=== PATIENT | female | born 1945 | race Caucasian/White ===

== ENCOUNTER 2020-09-10 09:41 | Inpatient (IN) | payer MEDICARE, SELFPAY ==
[~2020-09-10] VITALS: Ht 167.6 cm; Wt 138.6 kg
[2020-09-10] VITALS (42 sets, daily range): BP systolic 55–140; BP diastolic 38–114
--- NOTE | 2020-09-10 09:43 | NUR ---
BIBA TAKEN TO BED 10
[2020-09-10] MEDS ORDERED: LEVOFLOXACIN 500 MG/D5W PREMIX 100 ML IV ONE (09:45)
[2020-09-10] MEDS ORDERED: NACL 0.9% 1,000 ML IV ONE (09:45)
--- NOTE | 2020-09-10 10:00 | NUR ---
Spoke to patients Tarah victor. Call for updates-- [phone]
--- NOTE | 2020-09-10 10:05 | NUR ---
75 y/o female A&OX4 biba with CPAP O2 at 92% from home c/o sob/difficulty breathing since yesterday. Lungs are diminished at bilateral bases, retractions noted on arrival, labored breathing. PLaced pt on bipap on arrival, O2 at 94%. medhx: DM, HTN
--- NOTE | 2020-09-10 10:09 | NUR ---
RECEIVED PT FROM EMT ON THEIR PIPAP REPLACED WITH VISION BPAP WITH SETTINGS CHARTED PER DR HOU PT ANXIOUS BREATH SOUNDS PRESENR BILAT COARSE BIPAP PLUGGED INTO RED OUTLET AMBU BAG AT BEDSIDE WILL CONTINUE TO MONITOR PT ON VENT
--- NOTE | 2020-09-10 10:14 | NUR ---
CHASITY ross completed, walked to lab.
[2020-09-10 10:22] LABS: HEMATOCRIT 38.7 % (36-48); HEMOGLOBIN 12.1 g/dL (12.0-16.0); MEAN CORPUSCULAR HEMOGLOBIN 28 pg (27-31); MEAN CORPUSCULAR HGB CONC 31 g/dL (33-37); MEAN CORPUSCULAR VOLUME 88.8 fL (80-94); PLATELET COUNT (AUTO) 77 K/uL (140-450); RED BLOOD CELL COUNT(AUTO) 4.36 MIL/uL (4.20-5.40); RED CELL DISTRIBUTION WIDTH 16.2 % (11.6-13.7); WHITE BLOOD COUNT (AUTO) 22.4 K/uL (4.8-10.8)
[2020-09-10] MEDS ORDERED: LORazepam 2 MG/ML VIAL ONE (10:33)
[2020-09-10] MEDS ORDERED: KETOROLAC 30 MG/ML VIAL IVP ONE (10:35)
[2020-09-10] MEDS ORDERED: LORazepam 2 MG/ML VIAL IVP ONE ×2 (10:35)
[2020-09-10 10:36] LABS: ALBUMIN 2.9 g/dL (3.4-5.0); ANION GAP 25.6 (8-16); ASPARTATE AMINOTRANSFERASE 159 U/L (15-37); CARBON DIOXIDE 15.2 mmol/L (21-32); CHLORIDE 104 mmol/L (98-107); CREATININE 3.2 mg/dL (0.6-1.3); GLUCOSE 113 mg/dL (74-106); POTASSIUM 3.8 mmol/L (3.5-5.1); SODIUM SERUM 141 mmol/L (136-145); TOTAL BILIRUBIN 0.8 mg/dL (0.0-1.0); UREA NITROGEN, BLOOD 53 mg/dL (7-18)
--- NOTE | 2020-09-10 10:38 | NUR ---
Xray at bedside
[2020-09-10 10:42] LABS: LYMPHOCYTES % (MANUAL) 5 % (20-46); MONOCYTES % (MANUAL) 5 % (5-12)
[2020-09-10] MEDS ORDERED: PROPOFOL 1000 MG/100 ML PREMIX 100 ML IV ONE (11:40)
[2020-09-10] MEDS ORDERED: ETOMIDATE 20 MG/10 ML VIAL IVP ONE (11:40)
[2020-09-10] MEDS ORDERED: SUCCINYLCHOLINE CHLORIDE 200 MG/10 ML VIAL IVP ONE (11:40)
[2020-09-10] MEDS ORDERED: NACL 0.9% 2,000 ML IV SCH (11:40)
[2020-09-10] MEDS ORDERED: MORPHINE SULFATE 2 MG/ML SYR IVP PRN (11:55)
[2020-09-10] MEDS ORDERED: DOCUSATE SODIUM 100 MG GELCAP PO PRN (11:55)
[2020-09-10] MEDS ORDERED: ZOLPIDEM 5 MG TAB PO PRN (11:55)
[2020-09-10] MEDS ORDERED: ACETAMINOPHEN 325 MG TAB PO PRN (11:55)
[2020-09-10] MEDS ORDERED: ONDANSETRON 4 MG/2 ML VIAL IVP PRN (11:55)
[2020-09-10] MEDS ORDERED: NACL 0.9% 1,000 ML IV SCH (11:55)
[2020-09-10] MEDS ORDERED: HYDROcodone/APAP 5/325 MG 1 TAB TAB PO PRN (11:55)
[2020-09-10] MEDS ORDERED: LORazepam 2 MG/ML VIAL IM/IVP PRN (11:55)
--- NOTE | 2020-09-10 12:10 | NUR ---
Dr Prescott at bedside for intubation
--- NOTE | 2020-09-10 12:14 | NUR ---
Pt successfully intubated by Dr Prescott, RT at bed side, equal rise and fall of chest with bilateral lung sounds.
[2020-09-10] MEDS ORDERED: ALBUTEROL HFA MDI 90 MCG/ACTUATION 8 GM INH PRN (12:20)
[2020-09-10] MEDS ORDERED: HEPARIN PER PHARMACY MC PRN (12:20)
--- NOTE | 2020-09-10 12:24 | NUR ---
NG tube placed in right nare. Pt tolerated well
[2020-09-10] MEDS ORDERED: MIDAZOLAM MDV 50 MG in NACL 0.9% 40 ML IV PRN (12:45)
[2020-09-10] MEDS ORDERED: MIDAZOLAM MDV 100 MG in NACL 0.9% 80 ML IV SCH (12:55)
--- NOTE | 2020-09-10 12:56 | NUR ---
Pt BP decreased, Dr Anderson made aware. Will begin Versed demarcus
[2020-09-10] MEDS ORDERED: AZITHROMYCIN 250 MG TAB PO SCH (13:00)
--- NOTE | 2020-09-10 13:00 | NUR ---
Dr Prescott made aware of urgent need for central line. No further orders placed.
--- NOTE | 2020-09-10 13:01 | NUR ---
ABG ATTEMPTED X2 UNABLE TO OBTAIN DUE TO LOW B/P . WILL TRY AT LATER TIME.
[2020-09-10] MEDS ORDERED: NOREPINEPHRINE 4 MG/4 ML VIAL IV ONE ×2 (13:23→16:48)
--- NOTE | 2020-09-10 13:30 | NUR ---
Levophed started for decrease in BP
--- NOTE | 2020-09-10 13:32 | NUR ---
Lab at bedside for blood draw
[2020-09-10] MEDS: NOREPINEPHRINE 4 MG in DEXTROSE 5% 250 ML IV PRN ×2 (13:38→18:03)
--- NOTE | 2020-09-10 14:15 | NUR ---
Patient will be admitted to care of Dr Rodriguez. Admited to ICU. Will go to room 3. Belongings list completed. Report to SHRAVAN Calixto.
--- NOTE | 2020-09-10 14:18 | NUR ---
Propofol waste given to pharmacist.
--- NOTE | 2020-09-10 14:30 | NUR ---
PT ARRIVED FROM ER IN [facility], REPORT RECEIVED, PT INTUBATED, TO VENT, SEDATED ON VERSED DRIP, LEVOPHED AT 10, PT PLACED ON CARDIAC MONTIOR, VITALS DOCUMENTED, PT WITH PIV 20 G TO RIGHT HAND, SITE WNL, CABRAL CATH IN PLACE, MINIMAL URINE IN TUBING, SKIN WARM COLOR WNL, REDNESS NOTED TO SKIN FOLDS WITH FOUL SMELL, SEE PHOTOS. PT ORIENTED TO ROOM AND FLOOR, POC REVIEWED, WILL CONTINUE TO MOTNIOR
[2020-09-10 15:09] LABS: ALBUMIN 2.9 g/dL (3.4-5.0); AMYLASE 36 U/L (25-115); ASPARTATE AMINOTRANSFERASE 162 U/L (15-37); CARBON DIOXIDE 12.9 mmol/L (21-32); CHLORIDE 103 mmol/L (98-107); CHOL/HDL RATIO 2.4 (1-4.5); CREATININE 3.3 mg/dL (0.6-1.3); FREE T4 (FREE THYROXINE) 1.21 ng/dL (0.76-1.46); GLUCOSE 107 mg/dL (74-106); HDL CHOLESTEROL 56 mg/dL (40-60); LDL (CALC) 22 mg/dL (60-100); LIPASE 189 U/L (73-393); MAGNESIUM 1.7 mg/dL (1.8-2.4); PHOSPHORUS 6.1 mg/dL (2.5-4.9); POTASSIUM 3.9 mmol/L (3.5-5.1); SODIUM SERUM 140 mmol/L (136-145); THYROID STIMULATING HORMONE 3.79 uIU/mL (0.34-3.74); TOTAL BILIRUBIN 0.8 mg/dL (0.0-1.0); TRIGLYCERIDES 287 mg/dL (30-150); UREA NITROGEN, BLOOD 51 mg/dL (7-18)
--- NOTE | 2020-09-10 15:20 | NUR ---
SISTER CECIL AND COUSIN COLTON IN [facility], GENERAL HISTORY AND INFORMATION OBTAINED, PT CALLED COUSIN THIS AM COMPLAINING OF TROUBLE BREATHING, WHEN COUSIN ARRIVED AT HER HOUSE, SHE WAS VERY SHORT OF BREATH AND BLUE LIPS, AND CALLED 911. UNKNOWN IF PT RECIEVED FLU OR PNA VACCINES, NO KNOWN COVID CONTACTS. PT IS [facility] PATIENT, RECENTLY IN HOSPITAL FOR KIDNEY STONE AND UTI, PT WITH KNOWN HX OF DM AND HTN, ONLY KNOWN MEDICATION IS GLUCOTROL 5MG QHS, AND INSULIN INJECTION OF UNKNOWN DOSE.
--- NOTE | 2020-09-10 15:45 | NUR ---
DR BORGES AT BEDSIDE FOR EVAL, SISTER CECIL CALLED TO DISCUSS CONDITION, CONSENTED TO HD AND HD CATH PLACEMENT, DR NATARAJAN NOTIFIED.
[2020-09-10] MEDS ORDERED: SODIUM BICARBONATE 8.4% PFS 50 MEQ/50 ML SYR IVP SCH (15:52)
[2020-09-10] MEDS ORDERED: NOREPINEPHRINE 8 MG in DEXTROSE 5% 250 ML IV PRN (16:20)
--- NOTE | 2020-09-10 16:20 | NUR ---
DR NATARAJAN AT BEDSIDE, RIGHT IJ HOLLIE CATH WITH PIGTAIL PLACED.
--- NOTE | 2020-09-10 16:55 | NUR ---
OGT PLACED, POSITION CONFIRMED WITH AUSCULTATION.
[2020-09-10] MEDS: SODIUM BICARBONATE 8.4% 150 MEQ in DEXTROSE 5% 1,000 ML IV SCH (17:00)
--- NOTE | 2020-09-10 17:08 | NUR ---
pt coding, cpr in progress, left message with brother rick, Addendum: 09/10/20 at 1725 by Marily Bartlett RN johann charles. please disregard
[2020-09-10] MEDS ORDERED: DEXTROSE 50% 50 ML SYR IVP PRN (17:55)
[2020-09-10] MEDS ORDERED: INSULIN LISPRO SLIDING SCALE 100 UNITS/ML VIAL SUBQ PRN (17:55)
--- NOTE | 2020-09-10 18:10 | NUR ---
PHONE CALL FROM PTS SISTER CECIL; UPDATED ON PTSPRESENT CONDITION.QUESTIONS ANSWERED
--- NOTE | 2020-09-10 19:16 | NUR ---
RECEIVED PATIENT FROM DAY SHIFT ON AC RATE 18,TIDAL VOLUME 500, PEEP 5, 50% FIO2 ETT @ 25 CM. ETT PULLED BACK 2 CM. ETT NOW AT 23 AT THE LIP.VENTILATOR PLUGGED INTO RED OUTLET. BMV AT BEDSIDE. ETT SECURED WITH ANCHORFAST. ALARMS SET AND AUDIBLE. AIRWAY PATENT. PATIENT IS IN NO RESPIRATORY DISTRESS. WILL CONTINUE TO MONITOR IN CHANGES OF RESPIRATORY STATUS.
--- NOTE | 2020-09-10 19:30 | NUR ---
RECEIVED REPORT FROM RN, PT SEDATED ON VERSED DRIP. ETT TO VENT ON 100% FIO2 RR [address] ON MONITOR 120-130S, +1 THREADY PALPABLE PULES TO PERIPHERAL EXTREMITIES, SKIN COOL TO TOUCH, DISCOLORED; PURPLE FEET NOTED. ABD ROUND LARGE, OGT IN PLACE CLAMPED @ THIS TIME + PLACEMENT VIA AUSCULTATION, HYPOACTIVE BOWEL SOUNDS NOTED. CABRAL CATH IN PLACE, OLIGURIC, NO URINE NOTED. SKIN NON INTACT; BLANCHABLE REDNESS IN BETWEEN FOLDS, AND BUTTOCKS NOTED. RIJ HD CATH IN PLACE WITH PIGTAIL, PERIPHERAL IV TO R HAND NOTED, VERSED @ 1 MG/HR, LEVOPHED @ 30 MCG/MIN. BICARB DRIP RUNNING. FLACC 0. BED LOCKED IN LOWEST POSITION. WILL CONTINUE TO OBSERVE.
[2020-09-10] MEDS: NOREPINEPHRINE 16 MG in DEXTROSE 5% 250 ML IV PRN (19:47)
[2020-09-10] MEDS ORDERED: PHENYLEPHRINE 10 MG/ML VIAL ONE (19:50)
[2020-09-10] MEDS: PHENYLEPHRINE 40 MG in NACL 0.9% 250 ML IV PRN (20:25)
[2020-09-10] MEDS: ZINC SULF 220 MG CAP PO SCH (20:35)
[2020-09-10] MEDS: BLOOD GLUCOSE MONITORING 1 DEV DEV FS SCH (20:46)
[2020-09-10] MEDS ORDERED: MIDAZOLAM MDV 100 MG in NACL 0.9% 80 ML IV PRN (21:00)
--- NOTE | 2020-09-10 21:40 | NUR ---
PHONE CALL TO DR BORGES; FREDERICK TO INSERT PICC LINE; ORDERED BMP. PICC LINE NURSE ELYSSA IN THE UNIT.
[2020-09-11] VITALS (33 sets, daily range): BP systolic 55–93; BP diastolic 27–76
--- NOTE | 2020-09-11 00:36 | NUR ---
PHONE CALL TO DR BEAN; MADE AWARE PT IS MAX DOSE ON LEVOPHED AND JENNIFER SYNEPHRINE.ORDERED VASOPRESSIN DRIP PER PROTOCOL
[2020-09-11 01:01] LABS: ANION GAP 25.9 (8-16); CARBON DIOXIDE 15.4 mmol/L (21-32); CHLORIDE 101 mmol/L (98-107); GLUCOSE 164 mg/dL (74-106); POTASSIUM 4.3 mmol/L (3.5-5.1); SODIUM SERUM 138 mmol/L (136-145)
[2020-09-11 01:06] LABS: UREA NITROGEN, BLOOD 67 mg/dL (7-18)
[2020-09-11] MEDS ORDERED: VASOPRESSIN 20 UNITS/ML VIAL ONE (01:13)
[2020-09-11] MEDS ORDERED: PHENYLEPHRINE 10 MG/ML VIAL ONE ×2 (01:15→04:21)
[2020-09-11] MEDS: VASOPRESSIN 20 UNITS in NACL 0.9% 250 ML IV SCH ×2 (01:32→09:27)
[2020-09-11] MEDS: PHENYLEPHRINE 40 MG in NACL 0.9% 250 ML IV PRN ×2 (01:33→05:59)
--- NOTE | 2020-09-11 03:26 | NUR ---
PHONE CALL TO DR BEAN; RE BP 84/48; MAX DOSE ON LEVOPHED,JENNIFER SYNEPHRINE AND VASOPRESSIN DRIPS.NO ANSWER; LEFT MESSAGE TO CALL BACK [facility]
[2020-09-11] MEDS: SODIUM BICARBONATE 8.4% 150 MEQ in DEXTROSE 5% 1,000 ML IV SCH (03:50)
[2020-09-11] MEDS: NOREPINEPHRINE 16 MG in DEXTROSE 5% 250 ML IV PRN (03:51)
--- NOTE | 2020-09-11 04:00 | NUR ---
PHONE CALL FROM DR BEAN; MADE AWARE THAT PTS BP STILL LOW; PT ALREADY MAX DOSE WITH LEVOPHED DRIP,JENNIFER SYNEPHRINE AND VASOPRESSIN DRIPS.GAVE DR BEAN PTS SISTER'S PHONE NUMBER CECIL [phone]. SAID SHE WILL CALL CECIL
--- NOTE | 2020-09-11 04:38 | NUR ---
RECEIVED PHONE CALL FROM DR BEAN. STATED SHE SPOKE WITH FAMILY. ORDERS TO PLACE PT ON DNR.
--- NOTE | 2020-09-11 05:31 | NUR ---
PT STILL VERY LETHARGIC; ORAL SECRETIONS SUCTIONED.FLACC 0
--- NOTE | 2020-09-11 06:00 | NUR ---
PTS SISTER CECIL IN THE LOBBY AT THIS TIME.UPDATED ON PTS PRESENT CONDITION.CECIL WATCHING PT VIA BEDSIDE MONITOR.
[2020-09-11 06:12] LABS: HEMATOCRIT 37.6 % (36-48); HEMOGLOBIN 11.7 g/dL (12.0-16.0); MEAN CORPUSCULAR HEMOGLOBIN 28 pg (27-31); MEAN CORPUSCULAR HGB CONC 31 g/dL (33-37); MEAN CORPUSCULAR VOLUME 88.3 fL (80-94); PLATELET COUNT (AUTO) 81 K/uL (140-450); RED BLOOD CELL COUNT(AUTO) 4.25 MIL/uL (4.20-5.40); RED CELL DISTRIBUTION WIDTH 16.4 % (11.6-13.7)
[2020-09-11 06:38] LABS: WHITE BLOOD COUNT (AUTO) 33.2 K/uL (4.8-10.8)
[2020-09-11 06:51] LABS: LYMPHOCYTES % (MANUAL) 2 % (20-46); METAMYELOCYTES % 2 % (0-0); MONOCYTES % (MANUAL) 9 % (5-12); PROMYELOCYTES % 1 % (0-0)
[2020-09-11 06:57] LABS: ALBUMIN 2.5 g/dL (3.4-5.0); ANION GAP 30.3 (8-16); ASPARTATE AMINOTRANSFERASE 1150 U/L (15-37); CARBON DIOXIDE 13.6 mmol/L (21-32); CHLORIDE 100 mmol/L (98-107); GLUCOSE 153 mg/dL (74-106); MAGNESIUM 1.8 mg/dL (1.8-2.4); PHOSPHORUS 8.8 mg/dL (2.5-4.9); POTASSIUM 4.9 mmol/L (3.5-5.1); SODIUM SERUM 139 mmol/L (136-145); TOTAL BILIRUBIN 0.8 mg/dL (0.0-1.0)
--- NOTE | 2020-09-11 06:59 | NUR ---
PTS CONDITION REMAINS UNCHANGED.FLACC 0.
--- NOTE | 2020-09-11 07:15 | NUR ---
rec'd pt on carescape vent settings ac 18 vt500 peep 5 fio2 50% alarms on and audible and bvm at hob and vent is plugged into red outlet, sxn pt small amt of cream color secretions b\s are diminished bilaterally, pt is orally intubated with 7.5 ett secured at 25cm pt is resting
[2020-09-11 07:22] LABS: LACTATE DEHYDROGENASE 1126 U/L (81-234)
[2020-09-11] MEDS: ZINC SULF 220 MG CAP PO SCH (08:10)
[2020-09-11] MEDS: BLOOD GLUCOSE MONITORING 1 DEV DEV FS SCH (08:13)
[2020-09-11] MEDS ORDERED: ASCORBIC ACID 500 MG TAB PO SCH (09:00)
[2020-09-11] MEDS ORDERED: VITAMIN D 400 IU TAB PO SCH (09:00)
[2020-09-11] MEDS ORDERED: AZITHROMYCIN 250 MG TAB PO SCH (09:00)
--- NOTE | 2020-09-11 09:00 | NUR ---
DR. BORGES WAS INFORM ABOUT PT. CONDITION BY HD. NURSE. HE CANCEL THE HEMODIALYSIS FOR TO DAY.
--- NOTE | 2020-09-11 09:15 | NUR ---
DR. BEAN WAS CALL TO INFORM P. CONDITION AND PT. VITAL SIGN . SHE AWARE AND HAS TALK TO THE FAMILY THIS MORNING.
[2020-09-11 09:41] LABS: CREATININE 4.3 mg/dL (0.6-1.3); UREA NITROGEN, BLOOD 69 mg/dL (7-18)
[2020-09-11 09:46] LABS: CREATINE KINASE MB 130.4 ng/mL (0-3.6)
--- NOTE | 2020-09-11 09:50 | NUR ---
Aleah FROM [facility] CALLED TO UPDATE ABOUT PT. CONDITION AND WILL NOT PLAN TO TRANSFER TO [facility].
--- NOTE | 2020-09-11 10:00 | NUR ---
DR. BEAN CALLED THE SON ARYA AND HE WOULD LIKE TO CHANGE PT. CODE STATUS FROM DNR TO COMFORT MEASURES ONLY/PULLIATIVE CARE , AND STOP ALL THE TREATMENT AT THIS TIME.
--- NOTE | 2020-09-11 10:15 | NUR ---
STARTES TURN OFF THE TREATMENT ONE AT THE TIME PATIEN VITAL SIGN IS DETERIORATING.
[2020-09-11] MEDS ORDERED: MORPHINE SULFATE 50 MG in NACL 0.9% 45 ML IV PRN (11:45)
--- NOTE | 2020-09-11 11:55 | NUR ---
START MORPHINE DRIP PROTOCOL.
--- NOTE | 2020-09-11 12:00 | NUR ---
HR 146 UNABLT TO OBTAIN BLOOD PRESSURE PUSE IS WEAK.
--- NOTE | 2020-09-11 12:10 | NUR ---
UNABLE TO OBTAIN HEART RATE AND BP .DR BEAN NOTIFIED.
--- NOTE | 2020-09-11 12:20 | NUR ---
DR. BEAN CAME TO EXAM THE PATIENT AND PRONOUNS PATIENT PASS AWAY AT 1220 PM.
--- NOTE | 2020-09-11 12:30 | NUR ---
THE PATIENT SISTER ARYA [[phone]] REGARDING THAT SHE PASS AWAY . SHE SAID SHE WILL LOOK FOR THE HOME AND WILL GET BACK TOUS.
--- NOTE | 2020-09-11 12:40 | NUR ---
CALL [facility] TO INFORM THEM ABOUT THE . AND THEY CAN,T TAKE HER TISSUE CASE #[id number]
--- NOTE | 2020-09-11 13:10 | NUR ---
TALK TO [employer] COACHING OFFICE , RELEASE THE BODY TO FAMILY BY.ASIF SANTOS.
--- NOTE | 2020-09-11 13:30 | NUR ---
ADMITTING AND HOUSE SUPPING NOTIFIED,
--- NOTE | 2020-09-11 19:30 | NUR ---
THE BODY [employer]S ENGINEER BY JOS JAEGER .
== END 2020-09-11 19:30 | disposition expired | DRG 871 ==
LOC: MED 09:41 → MIC 12:05
PROVIDERS: ADMIT Family Medicine; ATTEND Family Medicine
PROC: 02HV33Z Insertion of Infusion Device into Superior Vena Cava, Percutaneous Approach (ICD-10-PCS; principal; 2020-09-10)
PROC: B548ZZA Ultrasonography of Superior Vena Cava, Guidance (ICD-10-PCS; 2020-09-10)
PROC: 5A09357 Assistance with Respiratory Ventilation, Less than 24 Consecutive Hours, Continuous Positive Airway Pressure (ICD-10-PCS; 2020-09-10)
PROC: 5A1935Z Respiratory Ventilation, Less than 24 Consecutive Hours (ICD-10-PCS; 2020-09-10)
PROC: 0BH17EZ Insertion of Endotracheal Airway into Trachea, Via Natural or Artificial Opening (ICD-10-PCS; 2020-09-10)
DX: A41.9 Sepsis, unspecified organism (principal); I21.4 Non-ST elevation (NSTEMI) myocardial infarction; J96.01 Acute respiratory failure with hypoxia; R65.21 Severe sepsis with septic shock; N17.0 Acute kidney failure with tubular necrosis; I50.43 Acute on chronic combined systolic (congestive) and diastolic (congestive) heart failure; J18.9 Pneumonia, unspecified organism; E44.0 Moderate protein-calorie malnutrition; Z68.42 Body mass index [BMI] 45.0-49.9, adult; Z66 Do not resuscitate; E66.01 Morbid (severe) obesity due to excess calories; Z20.828 Contact with and (suspected) exposure to other viral communicable diseases; E11.9 Type 2 diabetes mellitus without complications; E83.42 Hypomagnesemia; E83.39 Other disorders of phosphorus metabolism; E78.5 Hyperlipidemia, unspecified; M19.012 Primary osteoarthritis, left shoulder; I46.9 Cardiac arrest, cause unspecified; K21.9 Gastro-esophageal reflux disease without esophagitis; M94.0 Chondrocostal junction syndrome [Tietze]; Z88.0 Allergy status to penicillin
CPT/HCPCS: 31500; 36415; 36600; 43753; 71045; 80048; 80053; 82150; 82550; 82553; 82803; 83036; 83605; 83615; 83690; 83735; 83880; 84100; 84439; 84443; 84484; 85025; 85379; 85610; 85651; 85730; 86140; 87040; 87081; 93005; 94002; 94003; 96361; 96365; 96367; 96375; 99291; J0330; J0696; J1644; J1815; J1885; J1956; J2060; J2250; J2270; J2370; J2704; J3490; J7030; J7060; U0003